=== PATIENT | female | born 1975 | race African-American/Black ===

== ENCOUNTER 2021-03-17 17:55 | Emergency (ER) | payer SELFPAY ==
[2021-03-17 17:56] VITALS: BP 188/115; PULSE 99; RESP 18; TEMP 36.3; O2SAT 99; BMI 25.7
--- NOTE | 2021-03-17 20:11 | EDS_ITS ---
HPI History of Present Illness Chief Complaint: Headache Informant: patient Narrative Narrative: Patient presents with a headache. This was slow onset and started at some point yesterday. Last night it was bad and she was having trouble getting to sleep. She took 2 Motrin and she was able to sleep. She has never had neurologic symptoms with it. No fevers or chills. It was not thunderclap. She does get headaches sometimes but they are usually not like this. Most of her headaches around the sinuses in the front of the head. This is more on the top of the head and a little bit toward the back. It is a constant ache. Nothing really makes it worse but the Motrin did make it better. No history of aneurysms in her the family. No history of polycystic disease. Patient also had slight lymphadenopathy a couple days ago in her left upper neck but that seems to resolved. She had some slight dental pain but that seems better to. She did have her Pfizer Covid shot approximately 27 February but had no symptoms immediately related to that. [facility] Medical History Alpha (0) thalassemia Home Medications multivitamin with iron-mineral [Multi M Vitamin] 1 tab PO DAILY 03/17/21 [History Last Taken Unknown] amlodipine 5 mg PO DAILY #30 tab 03/18/21 [Rx Last Taken Unknown] Allergy/AdvReac Type Severity Reaction Status Date / Time No Known Allergies Allergy Verified 03/17/21 17:59 Social History Smoking Status: Never smoker ROS ROS ED Constitutional Constitutional ED: Denies fever(s) or subjective Eyes Eyes: Denies blurry vision, change in vision or diplopia ENT ENT ED: Reports other Details: Sore tooth that seems to be better and lymphadenopathy that is also resolved. ; Denies ear pain, rhinorrhea or sore throat Cardiovascular Cardiovascular: Denies chest pain or palpitations Respiratory/Chest Respiratory/Chest: Denies cough or dyspnea Gastrointestinal Gastrointestinal: Denies diarrhea, nausea or vomiting Musculoskeletal Musculoskeletal: Denies arthralgias, back pain, myalgias or neck pain Integumentary Denies abscess, Abrasions or rash Neurologic Neurologic: Reports headache(s); Denies paresthesias or weakness Endocrine Endocrinology: Denies polydipsia or polyuria Hematologic/Lymphatic Hematologic/Lymphatic: Denies easy bleeding or easy bruising Allergic/Immunologic Allergic/Immunologic ED: Denies mouth swelling, tongue swelling or urticaria EXAM Physical Exam Const Vital Signs: 03/17/21 17:56 03/17/21 22:21 03/17/21 22:39 Temperature 97.3 F L Temperature Source Temporal Pulse Rate 99 Respiratory Rate 18 18 Blood Pressure 188/115 H 172/101 H Blood Pressure Mean 139 124 Pulse Ox 99 Oxygen Delivery Method Room Air 03/18/21 00:09 Temperature Temperature Source Pulse Rate Respiratory Rate Blood Pressure 185/118 H Blood Pressure Mean 140 Pulse Ox Oxygen Delivery Method Positive well nourished and well developed General Appearance ED: well developed and NAD HEENT Reports normocephalic and moist mucous membranes HEENT Narrative: No dental tenderness when tapping with tongue blade. No swelling or erythema. atraumatic Eyes PERRL and EOMs intact bilaterally Eyes Narrative: No notable photophobia. Range of motion is normal. Pupillary responses normal. Neck no lymphadenopathy and supple Neck Narrative: I feel no lymphadenopathy at this time. No meningismus. Resp normal respiratory effort and clear to auscultation bilaterally Cardio regular rate and regular rhythm GI non-tender Palpation: soft Back/Spine no CVA tenderness Extremity normal to inspection Neuro Sensorium / Orientation: awake and alert Psych mental status grossly normal Skin Lesions: no lesions Rashes: no rashes MDM MDM MDM Narrative Medical decision making narrative: We recheck blood pressure. It has been elevated. So I will get her something for that. We will get her something for pain. CBC shows no acute process. She has normal white count hemoglobin and platelets. Electrolytes are overall unremarkable. There is a trace elevation of creatinine at 1.12. CTA of the head shows no acute process. I had originally ordered a CT of the head and CTA. Radiology stated we do not have to order the CT of the head because they will do a without contrast prior to the CTA. However, I do not have that officially read as no bleeding. I have talked to radiology a few times. They are having this sent through again to complete the reading on the noncontrast study. I have explained this to the patient. We will check her again. We have called again to radiology department. Our automotive glass technician has made 5 phone calls as well as email as well as the now another phone call to statement clerks supervisor. They have a radiologist reportedly looking at the films at this time. Patient will be updated with results. automotive glass technician called me. The noncontrast is read now. There is no noncontrast evidence of bleeding or hydrocephalus. Mastoids were normal. Overall the scan was normal. Patient's blood pressure was up. I do not know if this is the cause of her headache though. She states her blood pressure is always been low but she sta lianet it has been a very long time since its been checked. I cannot get if this is years or how long from her in specific details though. There is some family history of blood pressure in her mother. With her diastolic came close to 120 I do think it is reasonable we get her on some medication. We will start with amlodipine. Calcium channel blockers or diuretics are both effective but calcium channel blockers have shown better reduction risk of strokes. This needs follow-up. I do not think the patient needs an LP. This is not sudden onset headache. Not the worst she has ever had. Her CT and CTA look normal. Lab Data Labs: Laboratory Results - last 24 hr 03/17/21 03/17/21 20:20 20:20 WBC 7.3 RBC 5.26 Hgb 13.0 Hct 41.1 MCV 78.1 L MCH 24.7 L MCHC 31.6 L RDW Std Deviation 39.3 RDW Coeff of [place] 14.1 Plt Count 211 MPV 13.3 H Immature Gran % (Auto) 0.300 Neut % (Auto) 43.0 L Lymph % (Auto) 34.5 [place] % (Auto) 10.4 H Eos % (Auto) 11.5 H Baso % (Auto) 0.3 Absolute Neuts (auto) 3.1 Absolute Lymphs (auto) 2.52 Nucleated RBC % 0 Sodium 138 Potassium 4.9 Chloride 106 Carbon Dioxide 27.0 Anion Gap 5 BUN 18 Creatinine 1.12 H Estim Creat Clear Calc 55.35 Est GFR (MDRD) Af Amer 68 Est GFR (MDRD) Non-Af 56 L BUN/Creatinine Ratio 16.1 Glucose 85 Calcium 9.9 Radiography Diagnostic Testing: Clinical Impression(s) from Imaging Studies Head CTA 03/17/21 20:35 IMPRESSION: Normal [place] without a demonstrated aneurysm or hemodynamically significant stenosis. Electronically Signed: Johann Camara MD at 22:06 EST , Service support , Discharge Plan Triage Chief Complaint: Headache ED Provider: Theron Granger Dx/Rx/DC Orders Clinical Impression: Elevated blood pressure reading, Headache Instructions: ED Headache Unspecified, ED Hypertension, To Be Confirmed Prescriptions: New amlodipine 5 mg tablet 5 mg PO DAILY Qty: 30 RF: 0 No Action Multi M Vitamin Tablet 1 tab PO DAILY RF: 0 Primary Care Provider: Care Physician,No Primary Referrals: Phoebe Mahmood MD [STAFF PHYSICIAN] - 3-5 Days Care Physician,No Primary [Primary Care Provider] - Disposition Disposition: Home, Self Care
[2021-03-17] MEDS: 0.9% Normal Saline 1,000 ML 999 ML IV (20:26)
[2021-03-17 20:35] LABS: Absolute Lymphocyte Count 2.52 X10^3/uL (0.83-4.51); Absolute Neutrophil Count 3.1 X10^3/uL (2.0-7.7); Basophil# 0.02 X10^3/uL; Basophil% 0.3 % (0-1); Eosinophil# 0.84 X10^3/uL; Eosinophils% 11.5 % (0-5); Hematocrit 41.1 % (37-47); Lymphocyte # 2.52 X10^3/ul (0.83-4.51); Lymphocyte % 34.5 % (19-41); Mean Corp Hgb Conc 31.6 g/dL (32-36); Mean Corpuscular Hgb 24.7 pg (27.0-32.0); Mean Corpuscular Volume 78.1 fL (81-99); Mean Platelet Vol. 13.3 fl (6.2-12.0); Monocyte# 0.76 X10^3/uL; Monocyte% 10.4 % (0-10); NRBC Flagged by Analyzer 0 % (0-5); Neutrophil # 3.14 X10^3/uL (2.7-7.7); Platelet Count 211 K/mm3 (150-450); RBC Distribution Width CV 14.1 % (11.6-14.6); RBC Distribution Width SD 39.3 fl (35.1-43.9); Red Blood Count 5.26 M/mm3 (4.2-5.4); White Blood Count 7.3 K/mm3 (4.4-11.0)
--- NOTE | 2021-03-17 20:35 | CT_ITS ---
STUDY: CTA OF THE BRAIN REASON FOR EXAM: Female, 45 years old. headache RADIATION DOSAGE (If Supplied By Facility): CTDIvol = ( 27.40 ) mGy, DLP = ( 1218.08 ) mGycm TECHNIQUE: CT angiography was performed with a multi-detector CT scanner. Data acquisition was obtained from the skull base through the vertex following intravenous administration of 100 ML OF ISOVUE 370. MIP images were reconstructed from the axial data set. Post-processing of the angiographic images was performed, with multiplanar reformation and 3D reconstruction. Individualized dose optimization techniques were used for this CT. COMPARISON: None. FINDINGS: Normal bilateral petrous carotid arteries. Normal right cavernous carotid artery with a normal supraclinoid bifurcation. Normal left cavernous carotid artery with a normal supraclinoid bifurcation. Normal right A1 segments of the anterior cerebral artery. Normal left A1 segments of the anterior cerebral artery. Anterior communicating artery not visualized consistent with normal variant Normal bilateral A2 segments of the anterior cerebral arteries. Normal right M1 and M2 segments of the middle cerebral arteries, with a normal M1 bifurcation. Normal left M1 and M2 segments of the middle cerebral arteries, with a normal M1 bifurcation. Posterior communicating arteries are not visualized consistent with normal variant Normal bilateral vertebral arteries. Normal basilar artery with a normal basilar bifurcation. The visualized bilateral superior cerebellar (SCA) arteries are normal. Normal bilateral P1, P2 and visualized P3 segments of the posterior cerebral arteries. There is no demonstrated aneurysm of the [place]. There is no demonstrated abnormality of the visualized brain. CT/CTA Head W/WO Contrast IMPRESSION: Normal [place] without a demonstrated aneurysm or hemodynamically significant stenosis. Electronically Signed: Johann Camara MD at 22:06 EST , Service support ,
[2021-03-17 20:50] LABS: Anion Gap 5 (5-15); BUN 18 mg/dL (7-18); BUN/Creat Ratio 16.1 RATIO (10-20); Calcium,Total 9.9 mg/dL (8.5-10.1); Chloride 106 mmol/L (98-107); Creatinine, Serum 1.12 mg/dL (0.55-1.02); EST Glomerular Filtration Rate 56 mL/min (>60); Est Glom Filt Rate - Afr Amer 68 mL/min (>60); Estimated Creatinine Clearance 55.35 ml/min; Glucose 85 mg/dL (74-106); Potassium 4.9 mmol/L (3.5-5.1); Sodium Level 138 mmol/L (136-145)
[2021-03-17 22:21] VITALS: BP 172/101
[2021-03-17 22:39] VITALS: RESP 18
[2021-03-18] MEDS: Ketorolac 15 MG/ML Vial IV (00:06)
[2021-03-18 00:09] VITALS: BP 185/118
[2021-03-18 01:25] VITALS: BP 150/92; PULSE 91; RESP 16; O2SAT 97
== END 2021-03-18 01:39 | disposition home or self-care (01) ==
PROVIDERS: Emergency Provider Emergency Medicine
DX: R03.0 Elevated blood-pressure reading, without diagnosis of hypertension (principal); R51.9 Headache, unspecified
CPT/HCPCS: 70496; 80048; 85025; 87426; 96374; 99282; J7030; Q9967; A4216

== ENCOUNTER 2021-06-09 19:12 | Emergency (ER) | payer SELFPAY ==
[2021-06-09 19:13] VITALS: BP 178/106; PULSE 77; RESP 18; TEMP 35.8; O2SAT 99; BMI 24.0
[2021-06-09 19:48] LABS: Bacteria 0 SEEN /hpf (None Seen); Mucous, Urine 0 SEEN /hpf (<or=2+)
[2021-06-09 19:58] LABS: Glucose, Dipstick Normal (Normal); Ketone-Dipstick Negative (Negative); Leukocyte Esterase-Dipstick 500 /ul (Negative); Nitrite-Dipstick Negative (Negative); Occult Blood-Urine 250 /ul (Negative); Protein-Dipstick 30 mg/dl (Negative); Urine Bilirubin Dipstick Negative (Negative); Urine Clarity Sl. Cloudy (Clear); Urine Urobilinogen Normal (Normal); Urine pH 6.5 (5.0 - 8.0)
[2021-06-09 20:00] LABS: Color, Urine SEE COMMENT BELOW (Yellow)
[2021-06-09 20:07] LABS: Renal Epithelial Cells 0-5 SEEN /hpf (0-5); Squamous Epithelial Cells - UA 0-5 SEEN /hpf (5-10)
[2021-06-09 20:08] LABS: Red Blood Cells-Urine > 100 SEEN /hpf (0-5); White Blood Cells 0-5 SEEN /hpf (0-5)
[2021-06-09 20:20] LABS: Absolute Lymphocyte Count 2.39 X10^3/uL (0.83-4.51); Absolute Neutrophil Count 5.1 X10^3/uL (2.0-7.7); Basophil# 0.03 X10^3/uL; Basophil% 0.3 % (0-1); Eosinophil# 0.48 X10^3/uL; Eosinophils% 5.6 % (0-5); Hematocrit 44.2 % (37-47); Hemoglobin 14.7 g/dL (12.0-15.0); Lymphocyte # 2.39 X10^3/ul (0.83-4.51); Lymphocyte % 27.7 % (19-41); Mean Corp Hgb Conc 33.3 g/dL (32-36); Mean Corpuscular Hgb 25.4 pg (27.0-32.0); Mean Corpuscular Volume 76.5 fL (81-99); Mean Platelet Vol. 12.1 fl (6.2-12.0); Monocyte# 0.55 X10^3/uL; Monocyte% 6.4 % (0-10); NRBC Flagged by Analyzer 0 % (0-5); Neutrophil # 5.13 X10^3/uL (2.7-7.7); Neutrophil % 59.5 % (47-70); POSITIVE MORPHOLOGY YES; Platelet Count 291 K/mm3 (150-450); RBC Distribution Width CV 13.3 % (11.6-14.6); RBC Distribution Width SD 36.8 fl (35.1-43.9); Red Blood Count 5.78 M/mm3 (4.2-5.4); White Blood Count 8.6 K/mm3 (4.4-11.0)
[2021-06-09 20:30] LABS: Differential Indicated SCAN CRITERIA MET
[2021-06-09 20:34] LABS: Internal QC Validated? YES +Cl - CLEAR BKGD; Pregnancy, Serum, hCG Quali. NEGATIVE Negative
[2021-06-09 20:41] LABS: AST(SGOT) 9 U/L (15-37); Alanine Aminotransfer ALT/SGPT 20 U/L (13-56); Albumin, Serum 3.7 g/dL (3.2-5.0); Alkaline Phosphatase 120 U/L (45-117); Anion Gap 4 (5-15); BUN 11 mg/dL (7-18); BUN/Creat Ratio 8.8 RATIO (10-20); Calcium,Total 10.5 mg/dL (8.5-10.1); Chloride 104 mmol/L (98-107); Creatinine, Serum 1.25 mg/dL (0.55-1.02); EST Glomerular Filtration Rate 49 mL/min (>60); Est Glom Filt Rate - Afr Amer 60 mL/min (>60); Estimated Creatinine Clearance 49.59 ml/min; Globulin 4.9 g/dL (2.2-4.2); Glucose 101 mg/dL (74-106); Lipase 86 U/L (73-393); Potassium 3.5 mmol/L (3.5-5.1); Protein, Total 8.6 g/dL (6.4-8.2); Sodium Level 138 mmol/L (136-145)
--- NOTE | 2021-06-09 20:47 | EDS_ITS ---
HPI HPI - GI History of Present Illness Chief Complaint: Abd Pain Detail of Chief Complaint: Patient presents because of abdominal pain. She feels something is wrong. Informant: patient and spouse/S.O. 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[place]) Abdominal Pain/Flank Pain Onset: - (Per HPI) Context: Gradual Onset Timing: Continuous Quality: - (Fullness with nausea) Location: Epigastric Current Severity: Mild Maximum Severity: Moderate Worsened by: - (Patient believes she still has malaria) Relieved by: Nothing Nausea/Vomiting/Emesis GI Symptom: Positive for Nausea Onset: Days Diarrhea/Melena/Hematochezia GI Symptom: Positive for Diarrhea Onset: Days Associated Symptoms Associated Symptoms: Negative for Dysuria, Frequency and Hematuria Narrative Narrative: Patient is a 45-year-old woman who was visiting her in an area next to [facility]. She pleated 3-day course of antimalarial medicine and just recently completed a course of Cipro Floxin 500 mg. She also was prescribed primolutt nor Prior similar symptoms: No Recent Illness/Hospitalization: Yes (Diagnosed with malaria since she had fevers.) [facility] Medical History Alpha (0) thalassemia Home Medications multivitamin with iron-mineral [Multi M Vitamin] 1 tab PO DAILY 03/17/21 [History Last Taken Unknown] amlodipine 5 mg PO DAILY #30 tab 03/18/21 [Rx Last Taken Unknown] Primoult 06/09/21 [History Last Taken Unknown] ciprofloxacin HCl [Cipro] 500 mg PO BID 06/09/21 [History Last Taken Unknown] primoultn 06/09/21 [History Last Taken Unknown] Allergy/AdvReac Type Severity Reaction Status Date / Time No Known Allergies Allergy Verified 06/09/21 19:16 Social History (Updated 06/09/21 @ 20:[address] Jasvir Barreto MD) household members: other details: resides in [place] Smoking Status: Never smoker substance use type: does not use ROS ROS ED Constitutional Constitutional ED: Denies chills, fever(s), subjective, sweats or weight loss ENT ENT ED: Denies ear pain or rhinorrhea Cardiovascular Cardiovascular: Denies chest pain, palpitations or racing heartbeat Respiratory/Chest Respiratory/Chest: Denies cough, dyspnea or dyspnea on exertion Gastrointestinal Gastrointestinal: Reports abdominal pain and nausea; Denies constipation, diarrhea or vomiting Genitourinary Genitourinary ED: Denies dysuria, hematuria or urinary frequency Musculoskeletal Musculoskeletal: Denies arthralgias, myalgias or neck pain Integumentary Denies abscess, Abrasions or rash Neurologic Neurologic: Denies headache(s), paresthesias or weakness Psychiatric Psychiatric: Reports anxiety; Denies depression or suicidal thoughts Hematologic/Lymphatic Hematologic/Lymphatic: Denies easy bleeding or easy bruising EXAM Physical Exam Const Vital Signs: 06/09/21 19:13 Temperature 96.4 F L Temperature Source Temporal Pulse Rate 77 Respiratory Rate 18 Blood Pressure 178/106 H Blood Pressure Mean 130 Pulse Ox 99 Oxygen Delivery Method Room Air Positive well nourished and well developed General Appearance ED: well developed and NAD; Negative for pallor HEENT Reports TM's clear and moist mucous membranes normocephalic and atraumatic Tympanic Membrane ED: Yes TM's clear Eyes PERRL and EOMs intact bilaterally General Eye ED: Negative for pale conjunctiva or scleral icterus Neck no lymphadenopathy and supple Resp normal respiratory effort and clear to auscultation bilaterally Cardio regular rate, regular rhythm, S1 normal heart sound, S2 normal heart sound and no murmurs GI non-distended and no masses; Negative for non-tender Inspection: abdominal distention Auscultation: normoactive bowel sounds and hypoactive bowel sounds; Negative for hyperactive bowel sounds Palpation: soft and tender epigastric; Negative for guarding, rigid, hepatomegaly, splenomegaly or rebound tenderness present Back/Spine no CVA tenderness Thoracic Spine / Upper Back: Negative for thoracic spinal tenderness Lumbar Spine / Lower Back: Negative for lumbar spinal tenderness Extremity full ROM General Extremety ED: Negative for edema or tenderness General Extremity: Negative for edema Neuro Sensorium / Orientation: alert, oriented to person, oriented to place and oriented to time Psych mental status grossly normal and thought process normal Skin no wounds General Skin Exam: Negative for jaundice or pallor Lesions: no lesions Rashes: no rashes MDM MDM MDM Narrative Medical decision making narrative: Spoke to . He informed me what medi cation he he treated her with an does not believe she has malaria since she was treated with appropriate medicines and is no longer having a fever. Lab Data Attestation: I reviewed the patient's lab results. Lab results narrative: CBC is normal. Comprehensive metabolic panel is remarkable for a creatinine of 1.25 with a GFR of 60. Alk phos is slightly elevated at 120. UA is remarkable for microscopic hematuria with greater than 100 RBCs. There is no bacteria seen. Macro was positive for occult blood only. Serum test was negative. Since her test is negative will obtain abdominal film to confirm suspicion that this is related to increased gas. Labs: Laboratory Results - last 24 hr 06/09/21 06/09/21 06/09/21 19:25 20:10 20:10 WBC 8.6 RBC 5.78 H Hgb 14.7 Hct 44.2 MCV 76.5 L MCH 25.4 L MCHC 33.3 RDW Std Deviation 36.8 RDW Coeff of [place] 13.3 Plt Count 291 MPV 12.1 H Immature Gran % (Auto) 0.500 Neut % (Auto) 59.5 Lymph % (Auto) 27.7 [place] % (Auto) 6.4 Eos % (Auto) 5.6 H Baso % (Auto) 0.3 Absolute Neuts (auto) 5.1 Absolute Lymphs (auto) 2.39 Nucleated RBC % 0 Sodium 138 Potassium 3.5 Chloride 104 Carbon Dioxide 30.0 Anion Gap 4 L BUN 11 Creatinine 1.25 H Estim Creat Clear Calc 49.59 Est GFR (MDRD) Af Amer 60 Est GFR (MDRD) Non-Af 49 L BUN/Creatinine Ratio 8.8 L Glucose 101 Calcium 10.5 H Total Bilirubin 0.30 Direct Bilirubin 0.10 AST 9 L ALT 20 Alkaline Phosphatase 120 H Total Protein 8.6 H Albumin 3.7 Globulin 4.9 H Lipase 86 Serum , Qual Urine Color SEE COMMENT BELOW Urine Clarity Sl. Cloudy Urine pH 6.5 Ur Specific [place] 1.010 Urine Protein 30 H Urine Glucose (UA) Normal Urine Ketones Negative Urine Occult Blood 250 H Urine Nitrite Negative Urine Bilirubin Negative Urine Urobilinogen Normal Ur Leukocyte Esterase 500 H Urine RBC > 100 SEEN Urine WBC 0-5 SEEN Ur Squamous Epith Cells 0-5 SEEN Ur Renal Epithelial Cell 0-5 SEEN Urine Bacteria 0 SEEN Urine Mucus 0 SEEN 06/09/21 20:10 WBC RBC Hgb Hct MCV MCH MCHC RDW Std Deviation RDW Coeff of [place] Plt Count MPV Immature Gran % (Auto) Neut % (Auto) Lymph % (Auto) [place] % (Auto) Eos % (Auto) Baso % (Auto) Absolute Neuts (auto) Absolute Lymphs (auto) Nucleated RBC % Sodium Potassium Chloride Carbon Dioxide Anion Gap BUN Creatinine Estim Creat Clear Calc Est GFR (MDRD) Af Amer Est GFR (MDRD) Non-Af BUN/Creatinine Ratio Glucose Calcium Total Bilirubin Direct Bilirubin AST ALT Alkaline Phosphatase Total Protein Albumin Globulin Lipase Serum , Qual NEGATIVE Urine Color Urine Clarity Urine pH Ur Specific [place] Urine Protein Urine Glucose (UA) Urine Ketones Urine Occult Blood Urine Nitrite Urine Bilirubin Urine Urobilinogen Ur Leukocyte Esterase Urine RBC Urine WBC Ur Squamous Epith Cells Ur Renal Epithelial Cell Urine Bacteria Urine Mucus Radiography Diagnostic Testin view of the abdomen reveals an ossific gas pattern with increased gas and fecal matter. Suspect this is the cause of her fullness and nausea. Discharge Plan Triage Chief Complaint: Abd Pain ED Provider: Jasvir Barreto Dx/Rx/DC Orders Clinical Impression: Obstipation Instructions: ED Constipation (Adult) Prescriptions: No Action Multi M Vitamin Tablet 1 tab PO DAILY RF: 0 amlodipine 5 mg tablet 5 mg PO DAILY Qty: 30 RF: 0 ciprofloxacin HCl [Cipro] 500 mg Tablet 500 mg PO BID RF: 0 (DME) primoultn RF: 0 Primoult RF: 0 Primary Care Provider: Care Physician,No Primary Referrals: Willy Jim MD [STAFF PHYSICIAN] - As Needed Care Physician,No Primary [Primary Care Provider] - Disposition Disposition: Home, Self Care
--- NOTE | 2021-06-09 21:00 | RAD_ITS ---
EXAM: XR ABDOMEN, 2 VIEWS CLINICAL INDICATION: Fullness, distention, tympana and discomfort upper TECHNIQUE: Frontal view of the abdomen/pelvis with upright view of the abdomen. This report was created using [employer] report generation technology. COMPARISON: None. FINDINGS: LOWER THORAX: No acute pathology. INTRAPERITONEAL SPACE: No free air. GASTROINTESTINAL TRACT: Stool in the colon may suggest constipation. Non-obstructive. No bowel or stomach distention. ORGANS: Unremarkable as visualized. No organomegaly. No abnormal calcifications. BONES/JOINTS: No acute pathology. SOFT TISSUES: No acute pathology. RAD/Abd Inc Decub and/or Erect IMPRESSION: Stool in the colon may suggest constipation. Electronically Signed: Jerrell Powers MD at 21:17 EST ,
[2021-06-09 21:12] VITALS: RESP 17
[2021-06-09 21:19] LABS: Differential Comment SCANNED
[2021-06-09 21:26] VITALS: TEMP 36.6
== END 2021-06-09 21:28 | disposition home or self-care (01) ==
PROVIDERS: Emergency Provider Emergency Medicine; Visit Provider Emergency Medicine
DX: K59.00 Constipation, unspecified (principal)
CPT/HCPCS: 74019; 80048; 80076; 81001; 83690; 84703; 85025; 99283; A4216

== ENCOUNTER 2021-06-10 17:59 | Emergency (ER) | payer SELFPAY ==
[2021-06-10 18:00] VITALS: BP 175/107; PULSE 93; RESP 15; TEMP 36; O2SAT 98; BMI 28.2
--- NOTE | 2021-06-10 18:20 | EDS_ITS ---
HPI History of Present Illness Chief Complaint: Hypertension Detail of Chief Complaint: High blood pressure Informant: patient Onset/Context/Timing Onset: - (Unknown patient has not taken her medication for 1 month) Context: - (Unknown) Timing: - (Unknown) Quality: Elevated blood pressure asymptomatic Location: Cardiovascular Current Severity: Mild Maximum Severity: Mild Worsened by: Noncompliance Relieved by: Nothing Associated Symptoms Associated Symptoms: Chronic headache Narrative Narrative: Patient is a 45-year-old woman who was seen yesterday because she had concerned she had recurrent malaria. Patient was seen by me. She presents today because when she contacted her and told him her blood pressure he told her to go to the emergency room. Her is a physician. He is presently in [place]. She states she was on amlodipine. She has not taken the amlodipine for 1 month. She states it controlled her blood pressure. She informed me it is a white tablet. She does not remember if it was scored or if or what numbers were on the tablet. She complains of a global headache. She denies double vision, blurred vision l oss of vision. Denies ringing or ears or decreased hearing. She denies trouble with speech or swallowing. She denies paresthesia, anesthesia or motor weakness. She denies chest pain. She denies dyspnea or dyspnea on exertion. Denies orthopnea or PND. She denies problems with balance or coordination. Prior similar symptoms: Yes Recent Illness/Hospitalization: Yes (Did not inform me that she was on blood pressure medicine last evening or h) [facility] Medical History (Updated 06/10/21 @ 18:[address] Jasvir Barreto MD) Alpha (0) thalassemia Home Medications multivitamin with iron-mineral [Multi M Vitamin] 1 tab PO DAILY 03/17/21 [History Last Taken Unknown] amlodipine 5 mg PO DAILY #30 tab 03/18/21 [Rx Last Taken Unknown] Primoult 06/09/21 [History Last Taken Unknown] ciprofloxacin HCl [Cipro] 500 mg PO BID 06/09/21 [History Last Taken Unknown] primoultn 06/09/21 [History Last Taken Unknown] amlodipine 5 mg PO DAILY #30 tab 06/10/21 [Rx Last Taken Unknown] Allergy/AdvReac Type Severity Reaction Status Date / Time No Known Allergies Allergy Verified 06/09/21 19:16 Social History household members: other details: resides in [place] Smoking Status: Never smoker substance use type: does not use ROS ROS ED Constitutional Constitutional ED: Denies chills, fever(s), subjective, sweats or weight loss Eyes Eyes: Denies blurry vision, change in vision or diplopia ENT ENT ED: Denies ear pain, rhinorrhea or sore throat Cardiovascular Cardiovascular: Denies chest pain, orthopnea, palpitations or paroxysmal nocturnal dyspnea Respiratory/Chest Respiratory/Chest: Denies dyspnea, dyspnea on exertion, orthopnea or paroxysmal nocturnal dyspnea Gastrointestinal Gastrointestinal: Denies abdominal pain, diarrhea or vomiting Musculoskeletal Musculoskeletal: Denies arthralgias, back pain, myalgias or neck pain Integumentary Denies rash Neurologic Neurologic: Reports headache(s); Denies paresthesias or weakness Endocrine Endocrinology: Denies polydipsia, polyphagia or polyuria EXAM Physical Exam Const Vital Signs: 06/10/21 18:00 06/10/21 18:09 Temperature 96.8 F L Temperature Source Temporal Pulse Rate 93 Respiratory Rate 15 Respiratory Effort Normal Non-Labored Respiratory Pattern Normal Blood Pressure 175/107 H Blood Pressure Mean 129 Pulse Ox 98 Oxygen Delivery Method Room Air Positive well nourished and well developed General Appearance ED: well developed and NAD; Negative for cyanotic, diaphoretic or pallor HEENT Reports TM's clear and moist mucous membranes HEENT Narrative: Nares patent. Uvula midline. There is no erythema or exudate posterior pharynx. Negative for trauma or tenderness Tympanic Membrane ED: Yes TM's clear Eyes PERRL and EOMs intact bilaterally Eyes Narrative: Cup-to-disc ratio is normal. There is no AV nicking. There is no APD. General Eye ED: Negative for pale conjunctiva or scleral icterus Neck no lymphadenopathy, supple and no JVD Resp normal respiratory effort and clear to auscultation bilaterally Cardio regular rate, regular rhythm, S1 normal heart sound, S2 normal heart sound and no murmurs Extremity normal to inspection General Extremety ED: Negative for edema or tenderness General Extremity: Negative for edema Neuro CN's II-XII intact bilaterally and no sensory deficits noted Neuro Narrative: There is no dysmetria. Gait observed and normal. Bicep, brachialis, tricep, patella and ankle reflex are 2+ and symmetric. No clonus or Babinski sign. Sensorium / Orientation: alert Motor Exam: strength 5/5 throughout Psych mental status grossly normal Skin no rashes or lesions noted and no wounds General Skin Exam: Negative for jaundice or pallor MDM MDM MDM Narrative Medical decision making narrative: Since patient had laboratory work yesterday and had evidence of microscopic hematuria which may be due to her recent treated malaria no further testing was done last evening. Doubt this is because of untreated hypertension for 1 month. Since there is no renal dysfunction, LVH, funduscopic changes and patient is essentially asymptomatic will administer dose of amlodipine in the emergency department and write prescription for for aml odipine and discharge patient. Discharge Plan Triage Chief Complaint: Hypertension ED Provider: Jasvir Barreto Dx/Rx/DC Orders Clinical Impression: Accelerated essential hypertension Instructions: ED Hypertension, To Be Confirmed Prescriptions: New amlodipine 5 mg tablet 5 mg PO DAILY Qty: 30 RF: 0 No Action Multi M Vitamin Tablet 1 tab PO DAILY RF: 0 amlodipine 5 mg tablet 5 mg PO DAILY Qty: 30 RF: 0 ciprofloxacin HCl [Cipro] 500 mg Tablet 500 mg PO BID RF: 0 (DME) primoultn RF: 0 Primoult RF: 0 Primary Care Provider: Care Physician,No Primary Referrals: Shyanne Alegre DO [STAFF PHYSICIAN] - 1 Week Care Physician,No Primary [Primary Care Provider] - Disposition Disposition: Home, Self Care
[2021-06-10] MEDS: amLODIPine 5 MG Tablet PO (18:34)
== END 2021-06-10 18:36 | disposition home or self-care (01) ==
PROVIDERS: Emergency Provider Emergency Medicine; Visit Provider Emergency Medicine
DX: I10 Essential (primary) hypertension (principal)
CPT/HCPCS: 99283